=== PATIENT | male | born 1985 | race Caucasian/White ===

== ENCOUNTER 2021-09-07 20:30 | Emergency (ER) | payer BC ==
[~2021-09-07] VITALS: Ht 172.7 cm; Wt 81.6 kg
[2021-09-07] MEDS ORDERED: ACETAMINOPHEN 325 MG TABLET PO ONE (20:45)
[2021-09-07] MEDS ORDERED: LORAZEPAM 0.5 MG TABLET PO ONE (20:45)
[2021-09-07] MEDS ORDERED: LORAZEPAM 1 MG TABLET ONE (20:51)
[2021-09-07] MEDS ORDERED: ACETAMINOPHEN 325 MG TABLET ONE (20:51)
[2021-09-07 21:02] LABS: *BILIRUBIN,URIN NEGATIVE (NEGATIVE); *BLOOD, URINE NEGATIVE (NEGATIVE); *CLARITY,URINE CLEAR (CLEAR); *COLOR,URINE YELLOW (YELLOW); *KETONES,URINE TRACE (NEGATIVE); *UROBILINOGEN,URINE 0.2 E.U./dl (NORMAL); LEUKOCYTE ESTERASE ,URINE NEGATIVE (NEGATIVE); NITRITE, URINE NEGATIVE (NEGATIVE); PH,URINE 7.5 (5.0-8.0); UGLUCOSE NEGATIVE (NEGATIVE)
[2021-09-07 21:03] LABS: HEMATOCRIT 43.5 % (36.7-47.1); MEAN CORPUSCULAR HEMOGLOBIN 30.6 uug (23.8-33.4); MEAN CORPUSCULAR VOLUME 90.5 fL (73.0-96.2); PLATELET COUNT (AUTO) 181 K/uL (152-348)
[2021-09-07 21:13] LABS: BILIRUBIN,TOTAL 0.4 mg/dL (0.2-1.0); TOTAL PROTEIN, SERUM 7.3 g/dL (6.4-8.2)
[2021-09-07] MEDS ORDERED: IBUPROFEN 400 MG TABLET ONE (21:57)
--- NOTE | 2021-09-07 21:59 | NUR ---
Rechecked oral temp, result was 102.3. Dr Lemon notifield and orders was carried out.
[2021-09-07] MEDS ORDERED: IBUPROFEN 400 MG TABLET PO ONE (22:00)
[2021-09-07] MEDS ORDERED: IV NORMAL SALINE 500 ML BAG IV ONE ×2 (22:15)
--- NOTE | 2021-09-07 23:39 | NUR ---
Patient discharged to home in stable condition. Written and verbal after care instructions given. Patient verbalizes understanding of instructions. Stressed follow up or return to ER for worsening s/s. pt ambulated wtih steady gait. denies pain. AOx4. afebrile
[2021-09-07 23:40] VITALS: BP 120/61
== END 2021-09-07 23:40 | disposition home or self-care (01) ==
LOC: ER 20:33
DX: B34.9 Viral infection, unspecified (principal); R50.9 Fever, unspecified; R00.0 Tachycardia, unspecified; Z20.822 Contact with and (suspected) exposure to COVID-19; E10.9 Type 1 diabetes mellitus without complications
CPT/HCPCS: 99284; 71045; 87426; 80053; 81001; 85025; 36415; J7040 ×2; A4663